=== PATIENT | male | born 1980 | race Caucasian/White ===

== ENCOUNTER 2017-08-13 07:06 | Inpatient (IN) | payer OTHER, BC ==
[~2017-08-13] VITALS: Ht 152.4 cm; Wt 60.3 kg
[2017-08-13 07:19] VITALS: BP 116/78
[2017-08-13 07:37] LABS: URINE BILIRUBIN NEGATIVE (Negative); URINE BLOOD NEGATIVE (Negative); URINE CLARITY CLEAR; URINE COLOR YELLOW; URINE GLUCOSE-RANDOM* NEGATIVE (Negative); URINE KETONES NEGATIVE (Negative); URINE LEUKOCYTES NEGATIVE (Negative); URINE NITRITE NEGATIVE (Negative); URINE PROTEIN (DIPSTICK) NEGATIVE (Negative); URINE SPECIFIC GRAVITY 1.015 (1.005-1.035); URINE UROBILINOGEN 0.2 E.U./dl (0.2-1.0)
[2017-08-13 08:21] LABS: ABSOLUTE NEUTROPHILS 5.5 thou/uL (1.4-8.2); BASOPHILS 0.2 % (0.0-2.0); EOSINOPHILS 1.9 % (0.0-3.0); HEMATOCRIT 32.2 % (42.0-52.0); HEMOGLOBIN 10.6 gm/dL (14.0-18.0); LYMPHOCYTES 22.8 % (24.0-44.0); MCH 28.5 pg (26.0-34.0); MCHC 32.9 g/dL (28.0-37.0); MCV 86.7 fL (80.0-100.0); MONOCYTES 8.5 % (1.0-8.0); PLATELET COUNT 215 thou/uL (150-400); POLYS 66.6 % (36.0-66.0); RBC 3.71 mil/uL (4.50-6.00); RDW 15.2 % (10.5-14.5); WBC 8.2 thou/uL (4.0-11.0)
[2017-08-13 08:28] LABS: CALCIUM 9.3 mg/dL (8.5-10.1); CREATININE 1.8 mg/dL (0.7-1.3); POTASSIUM 4.1 mmol/L (3.5-5.1)
[2017-08-13 08:34] LABS: ALBUMIN 3.8 g/dL (3.4-5.0); DIRECT BILIRUBIN 0.1 mg/dL (<0.1-0.3); TOTAL BILIRUBIN 0.3 mg/dL (<0.1-1.0); TOTAL PROTEIN 7.2 g/dL (6.4-8.2)
[2017-08-13] MEDS ORDERED: LAMICTAL100 MG PO (08:41)
[2017-08-13] MEDS ORDERED: ZANTAC 150MG T150 MG PO (08:42)
[2017-08-13] MEDS ORDERED: PREDNISONE 5 MG5 M1 PO (08:42)
[2017-08-13] MEDS ORDERED: LISINOPRIL5 MG PO (08:42)
[2017-08-13] MEDS ORDERED: LEXAPRO 10 MG T10 M1 PO (08:43)
[2017-08-13] MEDS ORDERED: RISPERDAL 1 MG T1 MG PO (08:44)
[2017-08-13] MEDS ORDERED: PROGRAF 1 MG1 MG PO (08:44)
[2017-08-13] MEDS ORDERED: MYFORTIC180 MG PO (08:45)
[2017-08-13] MEDS ORDERED: ZOCOR20 MG PO (08:46)
[2017-08-13] MEDS ORDERED: FLAGYL500 MG PO (09:44)
[2017-08-13] MEDS ORDERED: NORCO 5-325 TA1 EACH PO (09:44)
[2017-08-13] MEDS ORDERED: CIPROFLOXACIN500 M1 PO (09:44)
[2017-08-13 10:22] VITALS: BP 116/78
[2017-08-13 10:50] VITALS: BP 92/54
[2017-08-13 11:25] VITALS: BP 110/60
[2017-08-13 16:14] VITALS: BP 98/57
[2017-08-13 20:32] VITALS: BP 113/76
[2017-08-14 03:00] VITALS: BP 113/76
[2017-08-14 05:18] VITALS: BP 109/60
[2017-08-14 05:54] LABS: HEMATOCRIT 31.3 % (42.0-52.0); HEMOGLOBIN 10.3 gm/dL (14.0-18.0); MCH 28.5 pg (26.0-34.0); MCHC 33.1 g/dL (28.0-37.0); MCV 86.2 fL (80.0-100.0); RBC 3.63 mil/uL (4.50-6.00); RDW 14.7 % (10.5-14.5); WBC 6.3 thou/uL (4.0-11.0)
[2017-08-14 06:16] LABS: ALBUMIN 3.5 g/dL (3.4-5.0); CALCIUM 9.1 mg/dL (8.5-10.1); CREATININE 1.5 mg/dL (0.7-1.3); PHOSPHORUS 4.5 mg/dL (2.5-4.9); POTASSIUM 4.2 mmol/L (3.5-5.1)
[2017-08-14 06:54] VITALS: BP 127/80
[2017-08-14 16:16] VITALS: BP 124/76
[2017-08-14 20:18] VITALS: BP 112/72
[2017-08-15 08:05] VITALS: BP 124/79
[2017-08-15 20:43] VITALS: BP 116/71
[2017-08-16 07:43] LABS: ABSOLUTE NEUTROPHILS 4.6 thou/uL (1.4-8.2); BASOPHILS 0.7 % (0.0-2.0); EOSINOPHILS 2.4 % (0.0-3.0); HEMATOCRIT 32.8 % (42.0-52.0); HEMOGLOBIN 10.9 gm/dL (14.0-18.0); LYMPHOCYTES 26.5 % (24.0-44.0); MCH 28.3 pg (26.0-34.0); MCHC 33.1 g/dL (28.0-37.0); MCV 85.3 fL (80.0-100.0); PLATELET COUNT 254 thou/uL (150-400); POLYS 63.4 % (36.0-66.0); RBC 3.85 mil/uL (4.50-6.00); RDW 14.4 % (10.5-14.5); WBC 7.2 thou/uL (4.0-11.0)
[2017-08-16 07:52] LABS: CALCIUM 9.8 mg/dL (8.5-10.1); CREATININE 1.5 mg/dL (0.7-1.3)
[2017-08-16] MEDS ORDERED: CIPROFLOXACIN500 M1 PO (11:29)
[2017-08-16] MEDS ORDERED: FLAGYL500 MG PO (11:29)
[2017-08-16 13:24] VITALS: BP 122/80
== END 2017-08-16 15:57 | disposition home or self-care (01) | DRG 391 ==
LOC: ER 07:06 → EROBS 10:08 → 4N 10:08 → ENTRNSPT 08-14 16:35 → EDTRNSPT 08-14 16:47 → SICU 08-14 17:23
PROVIDERS: Emergency Medicine; Hospitalist
DX: K57.32 Diverticulitis of large intestine without perforation or abscess without bleeding (principal); N17.0 Acute kidney failure with tubular necrosis; Z94.0 Kidney transplant status; K59.00 Constipation, unspecified; D64.9 Anemia, unspecified; N18.9 Chronic kidney disease, unspecified; R06.6 Hiccough; K21.9 Gastro-esophageal reflux disease without esophagitis; Z85.528 Personal history of other malignant neoplasm of kidney; Z79.899 Other long term (current) drug therapy; Z88.8 Allergy status to other drugs, medicaments and biological substances; Z91.041 Radiographic dye allergy status; Z91.040 Latex allergy status
CPT/HCPCS: 10091; 15002

== ENCOUNTER → 2020-03-12 | Outpatient (CLI) | payer OTHER, BC ==
[~2020-03-12] MED LIST: ACETAMINOPHEN-1 EAC1 PO; CIPROFLOXACIN500 M1 PO; FLAGYL500 MG PO; LAMICTAL100 MG PO; LEXAPRO 10 MG T10 M1 PO; LISINOPRIL5 MG PO; MYFORTIC180 MG PO; NORCO 5-325 TA1 EACH PO; PREDNISONE 5 MG5 M1 PO; PROGRAF 1 MG1 MG PO; RISPERDAL 1 MG T1 MG PO; ZANTAC 150MG T150 MG PO; ZOCOR20 MG PO
== END ==
LOC: SJCVC 13:53
PROVIDERS: ATTEND Internal Medicine
DX: R94.31 Abnormal electrocardiogram [ECG] [EKG] (principal); R00.0 Tachycardia, unspecified; E78.5 Hyperlipidemia, unspecified; R07.9 Chest pain, unspecified; I12.0 Hypertensive chronic kidney disease with stage 5 chronic kidney disease or end stage renal disease; N18.6 End stage renal disease; K21.9 Gastro-esophageal reflux disease without esophagitis; E03.9 Hypothyroidism, unspecified; F12.90 Cannabis use, unspecified, uncomplicated; Z87.891 Personal history of nicotine dependence; Z79.899 Other long term (current) drug therapy; Z88.8 Allergy status to other drugs, medicaments and biological substances; Z91.040 Latex allergy status